=== PATIENT | female | born 1960 | race Caucasian/White ===

== ENCOUNTER 2016-08-29 21:24 | Emergency (ER) | payer OTHER ==
[~2016-08-29] VITALS: Ht 157.5 cm; Wt 68.5 kg
[2016-08-29 21:53] VITALS: Ht 157.5 cm; Wt 68.5 kg
[2016-08-30 00:04] VITALS: TEMP 98.6
[2016-08-30 00:29] LABS: BASOPHILS % 0.6 % (0.0-2.0); EOSINOPHILS # 0.1 10^3/ul (0.0-0.5); EOSINOPHILS % 1.7 % (0.0-7.0); HEMATOCRIT 36.4 % (37.0-47.0); HEMOGLOBIN 12.2 g/dl (12.0-16.0); LYMPHOCYTES # 2.1 10^3/ul (0.8-2.9); LYMPHOCYTES % 41.1 % (15.0-51.0); MEAN CORPUSCULAR HEMOGLOBIN 29.2 pg (29.0-33.0); MEAN CORPUSCULAR HGB CONC 33.5 g/dl (32.0-37.0); MEAN PLATELET VOLUME 10.5 fl (7.4-10.4); MONOCYTE # 0.4 10^3/ul (0.3-0.9); MONOCYTES % 7.9 % (0.0-11.0); NEUTROPHIL # 2.5 10^3/ul (1.6-7.5); NEUTROPHILS % 48.7 % (39.0-77.0); PLATELET COUNT 184 10^3/UL (140-440); RED BLOOD COUNT 4.19 10^6/ul (4.20-5.40); RED CELL DISTRIBUTION WIDTH 14.4 % (11.5-14.5); UNCORRECTED WBC 5.2 10^3/ul (4.8-10.8); WHITE BLOOD COUNT 5.2 10^3/ul (4.8-10.8)
[2016-08-30 00:31] LABS: CONDITION 1
[2016-08-30 00:44] LABS: ALBUMIN 4.2 g/dl (3.3-4.9); INR 1.01; PARTIAL THROMBOPLASTIN TIME 30.9 Sec (25.0-35.0); PROTIME 13.3 Sec (12.2-14.2)
[2016-08-30 00:45] LABS: POTASSIUM 3.7 mmol/L (3.5-5.1)
[2016-08-30 00:47] LABS: BILIRUBIN,INDIRECT 0.3 mg/dl (0-1.1); BILIRUBIN,TOTAL 0.3 mg/dl (0.2-1.3); CREATININE 0.54 mg/dl (0.44-1.00)
[2016-08-30 00:48] LABS: ALBUMIN/GLOBULIN RATIO 1.16; TOTAL PROTEIN 7.8 g/dl (6.1-8.1)
[2016-08-30 00:59] LABS: TROPONIN-I 0.013 ng/ml (0.00-0.12)
[2016-08-30] MEDS ORDERED: LORAZEPAM 2 MG INJ ONE (01:24)
[2016-08-30] MEDS ORDERED: LORAZEPAM 2 MG INJ IV ONE (01:30)
--- NOTE | 2016-08-30 01:36 | RADRPT ---
PROCEDURE: XR Chest. CLINICAL INDICATION: Chest pain TECHNIQUE: AP Portable chest. COMPARISON: No pertinent prior examinations were submitted for comparison. FINDINGS: The cardiomediastinal silhouette is normal. The lungs are clear. The osseous structures are unrema rkable. IMPRESSION: No acute findings. RPTAT: HIKT .José Miguel Oliver MD, MD Date Time Electronically viewed and signed by .José Miguel Oliver MD, MD on 08/30/2016 01:36 .T/
--- NOTE | 2016-08-30 02:01 | ERD ---
ER Documentation Chief Complaint Date/Time DATE: 08/30/16 TIME: 02:00 Chief Complaint LEFT ARM NUMBNESS X 2 DAYS WITH CP DESCRIBED TINGLING HPI This is a 55-year-old female with left arm numbness for 3 days. She has had mild chest pain described as tingling as well. No nausea no vomiting or chills. Patient says she has been under extreme anxiety for the past 2-3 days. Denies any other current complaints. She does complain of some mild perioral numbness in feet and numbness in both of her fingertips as well. No other current complaints. ROS All systems reviewed and are negative except as per history of present illness. PMhx/Soc Medical and Surgical Hx: pt denies Surgical Hx History of Surgery: Yes (tubuligation and right arm surgery 20 years ago) Anesthesia Reaction: No Hx Neurological Disorder: No Hx Respiratory Disorders: No Hx Cardiac Disorders: No Hx Psychiatric Problems: No Hx Miscellaneous Medical Probl: No Hx Alcohol Use: Yes (occasional) Hx Substance Use: No Hx Tobacco Use: No Smoking Status: Never smoker Physical Exam Vitals Vital Signs Date Time Temp Pulse Resp B/P Pulse Ox O2 Delivery O2 Flow Rate FiO2 08/30/16 00:04 98.6 70 14 133/64 100 Room Air 08/29/16 21:53 98.5 97 22 168/101 99 Physical Exam Const: [] Head: Atraumatic Eyes: Normal Conjunctiva ENT: Normal External Ears, Nose and Mouth. Neck: Full range of motion..~ No meningismus. Resp: Clear to auscultation bilaterally Cardio: Regular rate and rhythm, no murmurs Abd: Soft, non tender, non distended. Normal bowel sounds Skin: No petechiae or rashes Back: No midline or flank tenderness Ext: No cyanosis, or edema Neur: Awake and alert Psych: Normal Mood and Affect Result Diagram: 08/29/16 23508/29/16 235 Results 24 hrs Laboratory Tests Test 08/29/16 23:50 Activated Partial Thromboplast Time 30.9Sec Alanine Aminotransferase (ALT/SGPT) 39IU/L Albumin 4.2g/dl Albumin/Globulin Ratio 1.16 Alkaline Phosphatase 84IU/L Anion Gap 17 Aspartate Amino Transf (AST/SGOT) 36IU/L B-Type Natriuretic Peptide 141PG/ML Basophils # 0.010^3/ul Basophils % 0.6% Blood Morphology Comment Blood Urea Nitrogen 16mg/dl Calcium Level 9.0mg/dl Carbon Dioxide Level 28mmol/L Chloride Level 103mmol/L Creatinine 0.54mg/dl Direct Bilirubin 0.00mg/dl Eosinophils # 0.110^3/ul Eosinophils % 1.7% Globulin 3.60g/dl Glucose Level 87mg/dl Hematocrit 36.4% Hemoglobin 12.2g/dl INR International Normalized Ratio 1.01 Indirect Bilirubin 0.3mg/dl Lymphocytes # 2.110^3/ul Lymphocytes % 41.1% Mean Corpuscular Hemoglobin 29.2pg Mean Corpuscular Hemoglobin Concent 33.5g/dl Mean Corpuscular Volume 87.0fl Mean Platelet Volume 10.5fl Monocytes # 0.410^3/ul Monocytes % 7.9% Neutrophils # 2.510^3/ul Neutrophils % 48.7% Nucleated Red Blood Cells # 0.010^3/ul Nucleated Red Blood Cells % 0.0/100WBC Platelet Count 99661^3/UL Potassium Level 3.7mmol/L Prothrombin Time 13.3Sec Prothrombin Time Ratio 1.0 Red Blood Count 4.1910^6/ul Red Cell Distribution Width 14.4% Sodium Level 144mmol/L Total Bilirubin 0.3mg/dl Total Protein 7.8g/dl Troponin I 0.013ng/ml White Blood Count 5.210^3/ul Current Medications Medications (Trade) Dose Ordered Sig/Yulissa Route PRN Reason Start Time Stop Time Status Last Admin Dose Admin Lorazepam (Ativan) 1 mg ONCE ONCE IV 08/30/16 01:30 08/30/16 01:31 DC 08/30/16 01:26 Lorazepam (Ativan) 2 mg STK-MED ONCE .ROUTE 08/30/16 01:24 08/30/16 01:25 DC Procedures/MDM Chest X-ray 1V Interpreted by me: Soft Tissue: No acute abnormalities Bones: No acute abnormalities Mediastinum/Cardiac Silhouette/Lungs: No acute abnormalities\ EKG: Rate/Rhythm: [Normal Sinus Rhythm] QRS, ST, T-waves: [No changes consistent w/ acute ischemia] Impression: [No evidence of ischemia or arrhythmia] Patient's thoracic symptoms have stabilized while in the department and are stable for outpatient follow up. Exam and work up not consistent w/ ischemia, arrhythmia, PE or dissection. Departure Diagnosis: Primary Impression: Chest pain Chest pain type: unspecified Qualified Code: R07.9 - Chest pain, unspecified type Condition: Stable KATY PERRY Aug 30, 2016 02:01
[2016-08-30] MEDS ORDERED: LORA1TAB PO (02:29)
[2016-08-30 03:54] VITALS: BP 110/55; PULSE 89; RESP 16
== END 2016-08-30 03:56 | disposition home or self-care (01) ==
LOC: E/R 21:24
DX: R07.9 Chest pain, unspecified (principal); R40.2142 Coma scale, eyes open, spontaneous, at arrival to emergency department; R40.2252 Coma scale, best verbal response, oriented, at arrival to emergency department; R40.2362 Coma scale, best motor response, obeys commands, at arrival to emergency department
CPT/HCPCS: 36415; 71010; 80053; 83880; 84484; 85025; 85610; 85730; 93005; 96374; J2060; Z7502

== ENCOUNTER 2017-09-17 08:40 | Emergency (ER) | END 2017-09-17 11:03 | disposition home or self-care (01) ==

== ENCOUNTER 2017-09-22 09:44 | Emergency (ER) | END 2017-09-22 13:23 | disposition home or self-care (01) ==

== ENCOUNTER 2019-03-16 16:08 | Emergency (ER) | payer OTHER ==
[~2019-03-16] VITALS: Wt 78.0 kg
[~2019-03-16 16:08] MED LIST: ACET500C5 PO; FAMO-96 PO; HYDR-4011 PO; IBUP-1542 PO; LATA2.5D2 BOTH EYES; NAPR-985 PO
[2019-03-16 16:14] VITALS: BP 134/80; PULSE 80; RESP 18
[2019-03-16] MEDS ORDERED: ACETAMINOPHEN 325 MG TAB PO ONE (17:00)
[2019-03-16] MEDS ORDERED: IBUPROFEN 600 MG TAB PO ONE (17:00)
== END 2019-03-16 18:44 | disposition home or self-care (01) ==
LOC: FTE 16:08
DX: S52.501A Unspecified fracture of the lower end of right radius, initial encounter for closed fracture (principal); W18.30XA Fall on same level, unspecified, initial encounter; Y92.9 Unspecified place or not applicable
CPT/HCPCS: 29125; 73110; Z7502; Z7610